=== PATIENT | female | born 1995 | race Caucasian/White ===

== ENCOUNTER 2019-06-15 11:30 | Emergency (ER) | payer OTHER, BC, SELFPAY ==
[2019-06-15 11:46] VITALS: BP 116/70; PULSE 92; RESP 16; TEMP 37.2; O2SAT 100
--- NOTE | 2019-06-15 11:56 | ED.FEMALEGU ---
HPI - Female Genitourinary General Chief complaint: Urogenital-Female Stated complaint: possible uti Time Seen by Provider: 06/15/19 11:50 Source: patient and RN notes reviewed Mode of arrival: ambulatory Limitations: no limitations History of Present Illness HPI Narrative: Patient presents today complaining of a 2-day history of urinary frequency and unable to empty the bladder fully. She does report some low back pain that is worse than usual . Denies fever, abdominal pain, hematuria, dysuria. She has tried no medications for symptoms prior to arrival MD elicited complaint: other (Frequency, back pain) Related Data Home Medications Medication Instructions Recorded Confirmed verapamil 40 mg PO DAILY 06/15/19 06/15/19 zolmitriptan 2.5 mg PO DIRECTED PRN 06/15/19 06/15/19 Allergies Allergy/AdvReac Type Severity Reaction Status Date / Time amoxicillin Allergy Swelling Verified 06/15/19 11:48 Penicillins Allergy Swelling Verified 06/15/19 11:49 Review of Systems Review of Systems: Narrative: CONSTITUTIONAL: Denies body aches, fever, chills, or sweats. EYES: Denies visual changes, redness, or discharge. ENT: Denies rhinorrhea, congestion, sore throat, or otalgia. CARDIOVASCULAR: Denies chest pain, palpitations, or edema. RESPIRATORY: Denies cough or dyspnea. GASTROINTESTINAL: Denies abdominal pain, nausea, vomiting, or diarrhea. GENITOURINARY: Denies dysuria or hematuria.+ Frequency, incomplete bladder emptying SKIN: Denies rash, itching, or wounds. MUSCULOSKELETAL: Denies back pain, joint pain, or myalgia. NEUROLOGIC: Denies headache, numbness, tingling, or weakness. PSYCH: Denies depression or anxiety. PMFSH Comments At time of signature, I have reviewed and agree with nursing past medical, surgical, social and family history unless otherwise noted. Please see nursing chart for further information. There is no relevant family history pertinent to the presenting complaint Exam Narrative: Exam Narrative: GENERAL: Well-appearing, well-nourished, and in no acute distress. HEAD: Normocephalic, atraumatic. EYES: EOMI. No redness or drainage. Conjunctivae normal. ENT: Mucous membranes pink and moist. NECK: Normal AROM. Supple. No lymphadenopathy. CHEST: No respiratory distress. Clear to auscultation. HEART: Regular rate and rhythm. No murmur appreciated. Normal peripheral pulses. ABDOMEN: Soft, nontender, nondistended, normal active bowel sounds.-CVAT MUSCULOSKELETAL: No bony tenderness. EXTREMITIES: Normal range of motion. No edema. SKIN: Warm, dry, no rash. NEURO: No focal deficits. Alert and oriented x3. Gait steady. PSYCH: Normal affect. No signs of depression or anxiety. Course Vital Signs Vital signs: Vital Signs Temperature 99.0 F 06/15/19 11:46 Pulse Rate 92 06/15/19 11:46 Respiratory Rate 16 06/15/19 11:46 Blood Pressure 116/70 06/15/19 11:46 Pulse Oximetry 100 06/15/19 11:46 Temperature 99.0 F 06/15/19 11:46 Pulse Rate 92 06/15/19 11:46 Respiratory Rate 16 06/15/19 11:46 Blood Pressure 116/70 06/15/19 11:46 Pulse Oximetry 100 06/15/19 11:46 Reviewed MDM - Female Genitourinary Differential Diagnosis Differential diagnosis: Likely urinary tract infection, cystitis and other (Dehydration) Lab Data Attestation: I reviewed the patient's lab results. Labs: Urine Glucose Negative Reference Range: Negative Urine Bilirubin Negative Reference Range: Negative Urine Ketone Negative Reference Range: Negative Urine Specific [place] 1.010 Reference Range:1.001-1.035 Urine Blood 2+ Reference Range: Negative * * Urine pH 7.0 Reference Range: 5.0-9.0 Urine Protein Negative Reference Range: Negative Urine Urobilinogen 0.2 Refe
== END 2019-06-15 12:06 | disposition home or self-care (01) ==
PROVIDERS: Emergency Provider Nurse Practitioner
DX: R35.0 Frequency of micturition (principal)
CPT/HCPCS: 81003; 99202; G0463

== ENCOUNTER 2020-03-11 15:06 | Emergency (ER) | payer OTHER, BC, SELFPAY ==
[2020-03-11 15:19] VITALS: BP 119/78; PULSE 94; RESP 16; TEMP 37.2; O2SAT 100
--- NOTE | 2020-03-11 15:36 | ED.GENADULT ---
HPI - General Adult General Chief complaint: Upper Respiratory Infection Stated complaint: Sore throat Time Seen by Provider: 03/11/20 15:36 Source: patient Mode of arrival: ambulatory Limitations: no limitations History of Present Illness HPI narrative: 25-year-old female patient presents to the [facility] with complaints of a sore throat for the past 2 to 3 days. Patient states she noted white spots on the back of her throat as well. Patient states she has a history of rheumatic fever when she was a child. Patient denies any fevers, body aches or chills at this time. Patient states that many of her family members have had cold symptoms however they have been tested for Covid and came back negative. Patient denies being around anybody Covid positive that she is aware of. Patient denies taking any medications for her symptoms but states she has been doing some warm salt water gargles. Related Data Home Medications Medication Instructions Recorded Confirmed zolmitriptan 2.5 mg PO DIRECTED PRN 06/15/19 06/15/19 albuterol sulfate INHALATION 03/11/20 fluticasone propionate [Flovent INHALATION 03/11/20 HFA] Allergies Allergy/AdvReac Type Severity Reaction Status Date / Time amoxicillin Allergy Swelling Verified 06/15/19 11:48 Penicillins Allergy Swelling Verified 06/15/19 11:49 Review of Systems Review of Systems: Narrative: CONSTITUTIONAL: Denies fever, chills, or sweats. EYES: Denies visual changes, redness, or discharge. ENT: Denies rhinorrhea, congestion, positive sore throat, denies otalgia. CARDIOVASCULAR: Denies chest pain, palpitations, or edema. RESPIRATORY: Denies cough or dyspnea. GASTROINTESTINAL: Denies abdominal pain, nausea, vomiting, or diarrhea. GENITOURINARY: Denies dysuria or hematuria. SKIN: Denies rash or itching. MUSCULOSKELETAL: Denies back pain, joint pain, or myalgia. NEUROLOGIC: Denies headache, numbness, or weakness. PSYCHIATRIC: Denies anxiety or depression. PMFSH Comments At the time of my signature I agree with nursing past medical history, surgical, social, and family history. There is no relevant family history pertinent to the presenting complaint. Exam Narrative: Exam Narrative: GENERAL: Well-appearing, well-nourished, and in no acute distress. HEAD: Normocephalic, atraumatic. EYES: PERRLA and EOMI. ENT: Nares clear, no rhinorrhea or epistaxis. Mucous membranes moist. Posterior pharynx with 2+ tonsil enlargement but no erythema no exudates or lesions present. Bilateral TMs are clear no erythema or foreign bodies to the canal. NECK: Supple. No lymphadenopathy CHEST: Clear to auscultation. No respiratory distress. HEART: Regular rate and rhythm. No murmur heard. Normal peripheral pulses. ABDOMEN: Soft, nontender, nondistended, normal active bowel sounds. EXTREMITIES: Normal range of motion. No edema. SKIN: Warm, dry, no rash. NEURO: No focal deficits. Alert and oriented x3. Course Reevaluation(s) Reevaluation #1: Reevaluated patient and notified her that her strep test today is negative. Discussed with her that she can continue doing warm salt water gargles taking Tylenol or ibuprofen as needed for her pain and fevers. Discussed with patient and offered to send her for COVID-19 testing. Patient has agreed. Patient notified that she will need to remain quarantine for at least 10 days from onset of symptoms despite any negative or positive test. Patient verbalized understanding denies any other questions or concerns at this time. Date: 03/11/20 Time: 15:50 Vital Signs Vital signs: Vital Signs Temperature 37.2 C 03/11/20 15:19 Pulse Rate 94 03/11/20 15:19 Respiratory Rate 16 03/11/20 15:19 Blood Pressure 119/78 03/11/20 15:19 Pulse Oximetry 100 03/11/20 15:19 Temperature 37.2 C 03/11/20 15:19 Pulse Rate 94 03/11/20 15:19 Respiratory Rate 16 03/11/20 15:19 Blood Pressure 119/78 03/11/20 15:19 Pulse Oximetry 100 03/11/20 15:19 At th
== END 2020-03-11 15:55 | disposition home or self-care (01) ==
PROVIDERS: Emergency Provider Nurse Practitioner Family
DX: J02.9 Acute pharyngitis, unspecified (principal); Z20.828 Contact with and (suspected) exposure to other viral communicable diseases; J45.909 Unspecified asthma, uncomplicated
CPT/HCPCS: 87081; 87880; 99213; G0463

== ENCOUNTER 2020-03-12 06:57 | Outpatient (NON) | payer OTHER, BC, SELFPAY ==
[2020-03-13 01:23] LABS: SARS-CoV-2 RNA PCR Negative
== END 2020-03-12 06:58 ==
PROVIDERS: Visit Provider Nurse Practitioner Family
DX: Z20.828 Contact with and (suspected) exposure to other viral communicable diseases (principal); J02.9 Acute pharyngitis, unspecified
CPT/HCPCS: 87635; C9803; U0003

== ENCOUNTER 2020-04-17 17:10 | Emergency (ER) | payer OTHER, SELFPAY ==
[2020-04-17 17:13] VITALS: BP 131/78; RESP 18; TEMP 36.4; O2SAT 100
[2020-04-17] MEDS: predniSONE 20 MG TABLET 60 MG PO (18:12)
--- NOTE | 2020-04-17 18:35 | ED.ASTHMA ---
HPI - Asthma General Chief Complaint: Asthma Stated Complaint: ASTHMA ATTACK Time Seen by Provider: 04/17/20 17:22 Source: patient Mode of arrival: ambulatory Limitations: no limitations History of Present Illness HPI Narrative: Patient is a 25-year-old female who presents with asthma symptoms noting that today she began to have some asthma exacerbation patient notes that she used her inhalers with some improvement notes that she had had some wheezing patient denies URI symptoms but notes that the asthma exacerbation did cough some coughing. Patient denies any distress or other complaints and on arrival is in no distress Related Data Home Medications Medication Instructions Recorded Confirmed zolmitriptan 2.5 mg PO DIRECTED PRN 06/15/19 06/15/19 albuterol sulfate INHALATION 03/11/20 fluticasone propionate [Flovent INHALATION 03/11/20 HFA] verapamil 03/11/20 Allergies Allergy/AdvReac Type Severity Reaction Status Date / Time amoxicillin Allergy Swelling Verified 06/15/19 11:48 Penicillins Allergy Swelling Verified 06/15/19 11:49 Review of Systems Review of Systems: All systems reviewed & are unremarkable except as noted in HPI and below PMFSH Past Medical History Medical History (Updated 04/17/20 @ 18:37 by James Mckeon PA-C) Asthma Social History Social History (Updated 04/17/20 @ 18:36 by James Mckeon PA-C) Smoking status: Never smoker Gender identity (if verbalized by the patient): Female Exam Narrative: Exam Narrative: GENERAL: Well-appearing, well-nourished, and in no acute distress. HEAD: Normocephalic, atraumatic. EYES: PERRLA and EOMI. ENT: Nares clear, no rhinorrhea or epistaxis. Mucous membranes moist. CHEST: Clear to auscultation. No respiratory distress. No wheezes rales or rhonchi HEART: Regular rate and rhythm. No murmur heard. EXTREMITIES: Normal range of motion. No edema. SKIN: Warm, dry, no rash. NEURO: No focal deficits. Alert and oriented x3. Cranial nerves II through XII grossly intact PSYCH: Normal mood and affect. Course Course Emergency Course: Patient in the room no distress aware of case findings treatment plan diagnosis resting comfortably in the room clear breath sounds normal vital signs felt appropriate for outpatient reevaluation Vital Signs Vital signs: Vital Signs Temperature 97.6 F 04/17/20 17:13 Respiratory Rate 18 04/17/20 17:13 Blood Pressure 131/78 04/17/20 17:13 Pulse Oximetry 100 04/17/20 17:13 Temperature 97.6 F 04/17/20 17:13 Respiratory Rate 18 04/17/20 17:13 Blood Pressure 131/78 04/17/20 17:13 Pulse Oximetry 100 04/17/20 17:13 MDM - Asthma MDM Narrative Medical decision making narrative: Patient with asthma exacerbation no distress will be discharged home Discharge Plan Discharge Clinical Impression: Asthma Patient Disposition: Home, Self-Care Condition: Stable Instructions: Antibiotic Form, Asthma (ED) Additional Instructions: Follow up with your primary care provider within 1-2 days. Go to ER for shortness of breath, difficulty breathing, chest pain, fever/chills, weakness, nauseau/vomitting, etc. or any other concerns. Take any prescribed medications as directed. If you do not have a drug allergy to tylenol or motrin and can tolerate it then take tylenol or motrin as needed for discomfort/pain. Prescriptions: New montelukast [Singulair] 10 mg tablet 10 mg PO DAILY Qty: 10 RF: 0 No Action zolmitriptan 2.5 mg tablet 2.5 mg PO DIRECTED PRN (Reason: Headache) RF: 0 albuterol sulfate 90 mcg/actuation HFA aerosol inhaler INHALATION RF: 0 Flovent HFA 110 mcg/actuation HFA aerosol inhaler INHALATION RF: 0 verapamil 40 mg tablet RF: 0 Follow-up/Referrals: PHYSICIAN,ACADEMIC AFFAIRS DIRECTOR [Primary Care Provider] - Celestine Carter Jr., MD [Physician] - Stand Alone Forms: Work/School Release IP
[2020-04-17 18:37] VITALS: BP 123/82; PULSE 80; RESP 18; TEMP 36.9; O2SAT 100
== END 2020-04-17 19:01 | disposition home or self-care (01) ==
PROVIDERS: Emergency Provider Emergency Medicine
DX: J45.901 Unspecified asthma with (acute) exacerbation (principal)
CPT/HCPCS: 99283; J7512

== ENCOUNTER 2020-05-13 11:29 | Emergency (ER) | payer OTHER, SELFPAY ==
--- NOTE | ~2020-05-13 | XR_ITS ---
EXAMINATION: XR chest 1V portable INDICATION: Cough and shortness of breath TECHNIQUE: Portable AP chest at 1225 hours COMPARISON: None available FINDINGS: The lungs are free of acute opacities. There is no pleural effusion or pneumothorax. The ca rdiomediastinal silhouette is normal. The visualized osseous structures are unremarkable. IMPRESSION: 1. No acute cardiopulmonary abnormality. Reviewed, dictated and finalized at location A. MANAGER
[2020-05-13 11:35] VITALS: BP 143/84; PULSE 114; RESP 20; TEMP 36.4; O2SAT 100
[2020-05-13] MEDS: ALBUTEROL SULFATE NEB 2.5 MG/0.5 ML INH 5 MG INHALATION (12:04)
[2020-05-13] MEDS: IPRATROPIUM BR 0.02% INH SOLN 0.5 MG/2.5 ML VIAL INHALATION (12:04)
[2020-05-13 12:06] VITALS: PULSE 97; RESP 20
--- NOTE | 2020-05-13 12:45 | ED.ASTHMA ---
HPI - Asthma General Chief Complaint: Asthma Stated Complaint: sob Time Seen by Provider: 05/13/20 11:48 Source: patient Mode of arrival: ambulatory Limitations: no limitations History of Present Illness HPI Narrative: This is a 25-year-old female that presents to the emergency department for wheezing today. Reports she has history of asthma. She takes Flovent for this and has albuterol inhaler as needed. Reports this morning she was having an asthma attack and tried taking her albuterol inhaler with little relief. Reports continued wheezing. Also reports a mild cough today, that she contributed to her asthma. Denies fever, congestion, or sore throat. Related Data Home Medications Medication Instructions Recorded Confirmed zolmitriptan 2.5 mg PO DIRECTED PRN 06/15/19 06/15/19 albuterol sulfate See Rx Instructions .ROUTE 03/11/20 .COMPLEX PRN fluticasone propionate [Flovent 2 puff INHALATION BID 03/11/20 HFA] verapamil TID 03/11/20 Allergies Allergy/AdvReac Type Severity Reaction Status Date / Time amoxicillin Allergy Swelling Verified 05/13/20 11:38 Penicillins Allergy Swelling Verified 05/13/20 11:38 Review of Systems Review of Systems: Narrative: CONSTITUTIONAL: Denies fever ENT: Denies rhinorrhea, congestion, sore throat CARDIOVASCULAR: Denies chest pain RESPIRATORY: Reports cough and dyspnea. All systems reviewed & are unremarkable except as noted in HPI and below PMFSH Past Medical History Medical History (Updated 05/13/20 @ 12:54 by Khadra Fitch PA-C) Asthma Social History Social History (Updated 04/17/20 @ 18:36 by James Mckeon PA-C) Smoking status: Never smoker Gender identity (if verbalized by the patient): Female Exam Narrative: Exam Narrative: GENERAL: Well-appearing, well-nourished, and in no acute distress. HEAD: Normocephalic, atraumatic. EYES: EOMI. ENT: Nares clear, no rhinorrhea or epistaxis. Mucous membranes moist. Oropharynx without tonsillar hypertrophy exudate or other lesions. Bilateral TMs pearly lucas non-bulging NECK: Supple. No adenopathy or masses. CHEST: No respiratory distress. Mild wheezes throughout. No rales or rhonchi HEART: Regular rate and rhythm. No murmur heard. Normal peripheral pulses. EXTREMITIES: Normal range of motion. No edema. SKIN: Warm, dry, no rash. NEURO: No focal deficits. Alert and oriented x3. PSYCH: Normal mood and affect Course Vital Signs Vital signs: Vital Signs Temperature 97.5 F L 05/13/20 11:35 Pulse Rate 114 H 05/13/20 11:35 Respiratory Rate 20 05/13/20 11:35 Blood Pressure 143/84 H 05/13/20 11:35 Pulse Oximetry 100 05/13/20 11:35 Temperature 97.5 F L 05/13/20 11:35 Pulse Rate 97 05/13/20 12:06 Respiratory Rate 20 05/13/20 12:06 Blood Pressure 143/84 H 05/13/20 11:35 Pulse Oximetry 100 05/13/20 11:35 MDM - Asthma MDM Narrative Medical decision making narrative: Patient presents to the emergency department for shortness of breath and wheezing. Has history of asthma. Reports she has been taking her Flovent as prescribed. She tried taking her albuterol inhaler this morning with little relief. Did report a mild cough, which she contributed to her asthma. Chest x-ray is clear. Did have some wheezing initially which cleared with nebulizer treatment. Will be started on a short oral course of steroids. Was instructed to follow-up with her primary care doctor. Was given warnings to return to the ER Imaging Data Radiologist's impression: ITS Impressions Chest X-Ray 05/13/20 12:27 IMPRESSION: 1. No acute cardiopulmonary abnormality. Critical Care Time Critical Care Time Critical Care Time: No Discharge Plan Discharge Clinical Impression: Asthma with acute exacerbation Qualifiers: Asthma severity: unspecified severity Asthma persistence: intermittent Qualified Code(s): J45.21 - Mild intermittent asthma with (acute) exacerbation Patient Disp
[2020-05-13 13:08] VITALS: PULSE 92; RESP 16; O2SAT 100
== END 2020-05-13 13:10 | disposition home or self-care (01) ==
PROVIDERS: Emergency Provider Emergency Medicine; Referring Provider Family Medicine
DX: J45.21 Mild intermittent asthma with (acute) exacerbation (principal)
CPT/HCPCS: 71045; 94640; 99283; 99284

== ENCOUNTER 2020-07-11 13:00 | Emergency (ER) | payer OTHER, SELFPAY ==
--- NOTE | ~2020-07-11 | XR_ITS ---
EXAMINATION: XR foot LT min 3V DATE: 07/11/2020 13:23 INDICATION: Left fifth metatarsal injury TECHNIQUE: Dorsoplantar, two oblique and lateral views of the left foot were obtained. COMPARISON: None. FINDINGS: Alignment is normal. No fracture. Joint spaces are normal. Soft tissues are unremarkable. IMPRESSION: 1. Negative left foot radiographs. Reviewed, dictated and finalized at location A.
[2020-07-11 13:04] VITALS: BP 142/84; PULSE 88; RESP 18; TEMP 36.3; O2SAT 100
[2020-07-11 13:08] VITALS: BP 142/84; PULSE 88; RESP 18; TEMP 36.3; O2SAT 100
--- NOTE | 2020-07-11 13:12 | ED.LOWEXIN ---
HPI - Extremity Injury (Lower) General Chief Complaint: Extremity Injury, Lower <Khadra Fitch PA-C - Last Filed: 07/11/20 13:39> Stated Complaint: lt foot injury <JOSE JUAN Cohen Last Filed: 07/11/20 13:39> Time Seen by Provider: 07/11/20 13:03 <Khadra Fitch PA-C - Last Filed: 07/11/20 13:39> Source: patient <JOSE JUAN Cohen Last Filed: 07/11/20 13:39> Mode of arrival: ambulatory <JOSE JUAN Cohen Last Filed: 07/11/20 13:39> Limitations: no limitations <JOSE JUAN Cohen Last Filed: 07/11/20 13:39> History of Present Illness HPI Narrative: This is a 25 year old female that presents to the ER for left foot pain after an injury yesterday. Reports she stepped down and twisted the foot. Reports pain on the lateral aspect of the foot, especially with weight bearing. Denies other injuries, decreased ROM or numbness. <JOSE JUAN Cohen Last Filed: 07/11/20 13:39> Related Data Home Medications: Home Medications Medication Instructions Recorded Confirmed zolmitriptan 2.5 mg PO DIRECTED PRN 06/15/19 06/15/19 albuterol sulfate See Rx Instructions .ROUTE 03/11/20 .COMPLEX PRN verapamil TID 03/11/20 fluticasone furoate-vilanterol INHALATION 07/11/20 [Breo Ellipta] ubrogepant [Ubrelvy] mg 07/11/20 <Khadra Fitch PA-C - Last Filed: 07/11/20 13:39> Allergies/Adverse Reactions: Allergies Allergy/AdvReac Type Severity Reaction Status Date / Time amoxicillin Allergy Swelling Verified 07/11/20 13:07 Penicillins Allergy Swelling Verified 07/11/20 13:07 <JOSE JUAN Cohen Last Filed: 07/11/20 13:39> Review of Systems Review of Systems: Narrative: CONSTITUTIONAL: Denies fever MUSCULOSKELETAL: Reports joint pain, and myalgia. NEUROLOGIC: Denies numbness <Khadra Fitch PA-C - Last Filed: 07/11/20 13:39> All systems reviewed & are unremarkable except as noted in HPI and below <Khadra Fitch PA-C - Last Filed: 07/11/20 13:39> PMFSH Past Medical History Medical History: Medical History (Updated 07/11/20 @ 13:39 by Khadra Fitch PA-C) Asthma <Khadra Fitch PA-C - Last Filed: 07/11/20 13:39> Social History Social History: Social History (Updated 04/17/20 @ 18:36 by James Mckeon PA-C) Smoking status: Never smoker Gender identity (if verbalized by the patient): Female <Khadra Fitch PA-C - Last Filed: 07/11/20 13:39> Exam Narrative: Exam Narrative: GENERAL: Well-appearing, well-nourished, and in no acute distress. HEAD: Normocephalic, atraumatic. EYES: EOMI. EXTREMITIES: Normal range of motion. No edema or obvious deformity. Tender to palpation of left 5th metatarsal. Normal DP pulses, normal sensation SKIN: Warm, dry, no rash. NEURO: No focal deficits. Alert and oriented x3. PSYCH: Normal mood and affect <Khadra Fitch PA-C - Last Filed: 07/11/20 13:39> Course Vital Signs Vital signs: Vital Signs Temperature 36.3 C L 07/11/20 13:04 Pulse Rate 88 07/11/20 13:04 Respiratory Rate 18 07/11/20 13:04 Blood Pressure 142/84 H 07/11/20 13:04 Pulse Oximetry 100 07/11/20 13:04 Temperature 36.3 C L 07/11/20 13:08 Pulse Rate 88 07/11/20 13:08 Respiratory Rate 18 07/11/20 13:08 Blood Pressure 142/84 H 07/11/20 13:08 Pulse Oximetry 100 07/11/20 13:08 <Khadra Fitch PA-C - Last Filed: 07/11/20 13:39> Vital Signs Temperature 36.3 C L 07/11/20 13:04 Pulse Rate 88 07/11/20 13:04 Respiratory Rate 18 07/11/20 13:04 Blood Pressure 142/84 H 07/11/20 13:04 Pulse Oximetry 100 07/11/20 13:04 Temperature 36.3 C L 07/11/20 13:08 Pulse Rate 88 07/11/20 13:08 Respiratory Rate 18 07/11/20 13:08 Blood Pressure 142/84 H 07/11/20 13:08 Pulse Oximetry 100 07/11/20 13:08 <Lynne Pozo MD - Last Filed: 07/11/20 14:06> MDM - Extremity Injury (Lower) MDM Narrative Medical decision making narrati
== END 2020-07-11 14:00 | disposition home or self-care (01) ==
PROVIDERS: Emergency Provider Emergency Medicine; PCP Family Medicine
DX: S93.602A Unspecified sprain of left foot, initial encounter (principal); J45.909 Unspecified asthma, uncomplicated; X50.9XXA Other and unspecified overexertion or strenuous movements or postures, initial encounter
CPT/HCPCS: 73630; 99283

== ENCOUNTER 2020-12-15 10:50 | Emergency (ER) | payer OTHER, SELFPAY ==
[2020-12-15 11:48] VITALS: BP 99/80; PULSE 94; RESP 20; TEMP 36.7; O2SAT 99
[2020-12-15 11:54] VITALS: O2SAT 99
--- NOTE | 2020-12-15 12:13 | ED.ASTHMA ---
HPI - Asthma General Chief Complaint: Upper Respiratory Infection Stated Complaint: asthma attach Time Seen by Provider: 12/15/20 11:48 Source: patient Mode of arrival: ambulatory Limitations: no limitations History of Present Illness HPI Narrative: 25-year-old female Here because of asthma Patient states that about 2 weeks ago she was presumably exposed to some mold while she was cleaning it out of their basement Since then she has had somewhat worse asthma symptoms which are not responding as well to her rescue albuterol inhaler as they typically do So far today she is used the albuterol inhaler once, 2 puffs She does use Breo and Singulair and has been taking them She does not have a fever or a sore throat or a productive cough Related Data Home Medications Medication Instructions Recorded Confirmed zolmitriptan 2.5 mg PO DIRECTED PRN 06/15/19 06/15/19 albuterol sulfate See Rx Instructions .ROUTE 03/11/20 .COMPLEX PRN verapamil TID 03/11/20 fluticasone furoate-vilanterol INHALATION 07/11/20 [Breo Ellipta] ubrogepant [Ubrelvy] mg 07/11/20 Allergies Allergy/AdvReac Type Severity Reaction Status Date / Time amoxicillin Allergy Swelling Verified 12/15/20 11:51 Penicillins Allergy Swelling Verified 12/15/20 11:51 Review of Systems Review of Systems: All systems reviewed & are unremarkable except as noted in HPI and below Constitutional: Constitutional: Reports no additional constitutional complaints, Denies chills, Denies fever(s) and Denies headache(s) ENT: Denies headache(s) and Denies sore throat Cardiovascular: Cardiovascular: Denies chest pain and Denies dyspnea Respiratory: Respiratory: Denies cough, Reports dyspnea and Reports wheezing Gastrointestinal: Gastrointestinal: Denies nausea and Denies vomiting Genitourinary: Genitourinary: Denies urinary frequency Musculoskeletal: Musculoskeletal: Denies deformity and Denies numbness Integumentary/Breasts: Skin/Breast: Denies rash and Denies wounds Neurologic: Denies headache(s) Allergic/Immunologic: Allergic/Immunologic: Reports no additional allergic/immunologic complaints, Denies throat swelling and Reports wheezing PMFSH Past Medical History Medical History Asthma Family History Family History (Updated 12/15/20 @ 12:17 by John Longoria MD) Other Asthma Social History Social History Smoking status: Never smoker Gender identity (if verbalized by the patient): Female Exam Const: General: cooperative, healthy appearing, no acute distress and alert Orientation/consciousness: patient oriented x3 (alert) HENMT: Head: normal to inspection, normocephalic and atraumatic Ears: external ears normal General nose exam: no epistaxis Mouth: Yes moist mucous membranes Other: Tonsils are little large, no erythema or exudates Eyes: Conjunctivae: conjunctivae normal EOM: EOMs intact bilaterally Neck: Neck: normal visual inspection, supple and no JVD Resp: Effort & Inspection: normal respiratory effort and not labored Auscultation: clear to auscultation bilaterally, no crackles, no rales, no rhonchi and other (BS =) Other: There is a rare wheeze heard but they are inspiratory and not expiratory Cardio: Rate: regular rate Rhythm: regular rhythm Skin: General skin exam: normal color and no rashes or lesions noted Neuro: General: patient oriented x3 (alert) Speech: normal speech Extrem: General: normal to inspection Psych: Affect: normal affect Course Vital Signs Vital signs: Vital Signs Temperature 36.7 C 12/15/20 11:48 Pulse Rate 94 12/15/20 11:48 Respiratory Rate 12/15/20 11:48 Blood Pressure 99/80 L 12/15/20 11:48 Pulse Oximetry 99 12/15/20 11:48 Temperature 36.7 C 12/15/20 11:48 Pulse Rate 94 12/15/20 11:48 Respiratory Rate 12/15/20 11:48 Blood Pressure 99/8
[2020-12-15 12:23] VITALS: BP 104/64; PULSE 74; RESP 17; O2SAT 97
== END 2020-12-15 12:24 | disposition home or self-care (01) ==
PROVIDERS: Emergency Provider Emergency Medicine; PCP Family Medicine
DX: J45.909 Unspecified asthma, uncomplicated (principal)
CPT/HCPCS: 99283

== ENCOUNTER 2022-12-06 11:29 | Outpatient (CLI) | payer OTHER, SELFPAY ==
--- NOTE | ~2022-12-06 | XR_ITS ---
EXAMINATION:XR_[id number]_CR DATE: 12/06/2022 16:09 INDICATION: Neck pain TECHNIQUE: AP, lateral, and odontoid views of the cervical spine are provided. COMPARISON: None FINDINGS: There is straightening of the cervical spine which can be positional or due to muscular spa sm. Alignment is normal. The odontoid process is intact. No fracture is identified. Vertebral body he ights and disk spaces are normal. Prevertebral soft tissues are normal. IMPRESSION: 1. No acute osseous abnormality. Reviewed, dictated and finalized at location F.
--- NOTE | ~2022-12-06 | XR_ITS ---
EXAMINATION: XR thoracic spine 3V DATE: 12/06/2022 16:09 INDICATION: Thoracic back pain TECHNIQUE: AP, lateral and lateral swimmer's views of the thoracic spine were obtained. COMPARISON: None. FINDINGS: No fracture, dislocation, or subluxation. The vertebral body heights, alignment, and interv ertebral disc spaces are normal. The paravertebral soft tissues are unremarkable. IMPRESSION: 1. No acute osseous abnormality. Reviewed, dictated and finalized at location [facility].
== END 2022-12-06 11:30 | disposition home or self-care (01) ==
PROVIDERS: PCP Family Medicine
DX: M54.2 Cervicalgia (principal); M54.9 Dorsalgia, unspecified
CPT/HCPCS: 72040; 72072

== ENCOUNTER 2023-07-30 09:18 | Outpatient (CLI) | payer BC, SELFPAY ==
--- NOTE | ~2023-07-30 | XR_ITS ---
Cervical Spine: AP, lateral, open-mouth views Clinical History: Pain Findings: There is mild reversal of the normal cervical lordosis. The vertebral bodies and posterior elements appear intact. The intervertebral disc spaces are well maintained. Pre-vertebral soft tis sues are unremarkable. Impression: Mild reversal of the normal cervical lordosis. Reviewed, dictated and finalized at [facility]. Impression: Mild reversal of the normal cervical lordosis.
--- NOTE | ~2023-07-30 | XR_ITS ---
Thoracic spine: Clinical Indication: Back pain AP and lateral views were performed. No fracture is seen. There is normal alignment of the vertebrae. The intervertebral disc spaces appe ar normal. Paravertebral soft tissues appear normal. Impression: No significant abnormalities noted. Reviewed, dictated and finalized at [facility]. Impression: No significant abnormalities noted.
== END 2023-07-30 09:19 ==
PROVIDERS: PCP Family Medicine; Visit Provider Family Medicine
DX: M54.2 Cervicalgia (principal); M54.6 Pain in thoracic spine
CPT/HCPCS: 72050; 72072